=== PATIENT | female | born 1995 | race Caucasian/White ===

== ENCOUNTER 2018-04-27 14:04 | Emergency (ER) | payer SELFPAY ==
--- NOTE | 2018-04-27 14:58 | EDM.PDOC ---
ED HPI GENERAL MEDICAL PROBLEM - General Chief Complaint: Upper Extremity Injury/Pain Stated Complaint: WRIST HURT Time Seen by Provider: 04/27/18 14:12 Source of Information: Reports: Patient History Limitations: Reports: No Limitations - History of Present Illness INITIAL COMMENTS - FREE TEXT/NARRATIVE: History of present illness: []She was lifting heavy boxes last week and felt her wrist pop. She thought it would go away but in his continued. Pain is mostly on the ulnar side of her right wrist. She states she has occasionally has some numbness and tingling but has full range of motion. Review of systems: As per history of present illness and below otherwise all systems reviewed and negative. Past medical history: As per history of present illness and as reviewed below otherwise noncontributory. Surgical history: As per history of present illness and as reviewed below otherwise noncontributory. Social history: No reported history of drug or alcohol abuse. Family history: As per history of present illness and as reviewed below otherwise noncontributory. Physical exam: General: Well developed, well nourished in NAD HEENT: Atraumatic, normocephalic, pupils reactive, negative for conjunctival pallor or scleral icterus, mucous membranes moist, throat clear, neck supple, nontender, trachea midline. Lungs: Clear to auscultation, breath sounds equal bilaterally, chest nontender. Heart: S1S2, regular, negative for clicks, rubs, or JVD. Abdomen: Soft, nondistended, nontender. Negative for masses or hepatosplenomegaly. Negative for costovertebral tenderness. Pelvis: Stable nontender. Genitourinary: Deferred. Rectal: Deferred. Extremities: Atraumatic, negative for cords or calf pain. Neurovascular unremarkable. No noted swelling of the right wrist full range of motion tenderness to palpation of the left ulnar area. Neuro: Awake, alert, oriented. Cranial nerves II through XII unremarkable. Cerebellum unremarkable. Motor and sensory unremarkable throughout. Exam nonfocal. Diagnostics: []X-ray right wrist negative for fracture dislocation of fluid Therapeutics: []Cock-up splint Impression: []Right wrist pain Plan: []Ice, elevate, Motrin for pain with her splint for 1 week follow-up with PMD as needed. Definitive disposition and diagnosis as appropriate pending reevaluation and review of above. 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 - Infectious Disease History Infectious Disease History: Reports: Other (See Below) Other Infectious Disease History: wound staph infection Social & Family History - Family History Family Medical History: Noncontributory - Tobacco Use Smoking Status *Q: Former Smoker Used Tobacco, but Quit: Yes Month/Year Tobacco Last Used: 11/05/2011 - Caffeine Use Caffeine Use: Reports: None - Recreational Drug Use Recreational Drug Use: No Review of Systems - Review of Systems Review Of Systems: See Below (See history of present illness) ED EXAM, GENERAL - Physical Exam Exam: See Below (See history of present illness) Course - Vital Signs Last Recorded V/S: Last Vital Signs Temp 98.7 F 04/27/18 14:20 Pulse 96 04/27/18 14:20 Resp 16 04/27/18 14:20 BP 139/66 04/27/18 14:20 Pulse Ox 98 04/27/18 14:20 - Orders/Labs/Meds Orders: Active Orders 24 hr Category Date Time Status Wrist 2V Rt [CR] Stat Exams 04/27/18 14:24 Taken Departure - Departure Time of Disposition: 14:57 Disposition: Home, Self-Care 01 Condition: Good Clinical Impression: Right wrist sprain Qualifiers: Encounter type: initial encounter Qualified Code(s): S63.501A - Unspecified sprain of right wrist, initial encounter - Discharge Information Referrals: PCP,None [Primary Care Provider] - Additional Instructions: The following information is given to patients seen in the emergency department who are being discharged to home. This information is to outline your options for follow-up care. We provide all patients seen in our emergency department with a follow-up referral. The need for follow-up, as well as the timing and circumstances, are variable depending upon the specifics of your emergency department visit. If you don't have a primary care physician on staff, we will provide you with a referral. We always advise you to contact your personal physician following an emergency department visit to inform them of the circumstance of the visit and for follow-up with them and/or the need for any referrals to a consulting specialist. The emergency department will also refer you to a specialist when appropriate. This referral assures that you have the opportunity for follow-up care with a specialist. All of these measure are taken in an effort to provide you with optimal care, which includes your follow-up. Under all circumstances we always encourage you to contact your private physician who remains a resource for coordinating your care. When calling for follow-up care, please make the office aware that this follow-up is from your recent emergency room visit. If for any reason you are refused follow-up, please contact the [facility] Emergency Department at and asked to speak to the emergency department charge nurse. [facility] [address] [place] [id number] - My Orders Last 24 Hours: My Active Orders 04/27/18 14:24 Wrist 2V Rt [CR] Stat - Assessment/Plan Last 24 Hours: My Active Orders 04/27/18 14:24 Wrist 2V Rt [CR] Stat
--- NOTE | 2018-04-29 11:09 | CR ---
EXAM DATE: 04/27/18 PATIENT'S AGE: 23 Patient: CONTRERAS ANGULO Facility: [place], [place] Site . Site : 1995 Study: XRay Extremity Right wrist [id number]/23/2018 2:41:53 PM Ordering Physician: Gildardo Brooks Final Report: HISTORY: Pain after lifting injury 1 week ago. FINDINGS: Two views of the right wrist or provided. There are no findings for fracture, dislocation or arthritic change. Moderate negative ulnar variance is noted as a normal variation. Dictated by Christian Bray MD @ Apr 27 2018 2:47PM (Electronic Signature) Report Signed by Proxy. AUBREY
== END 2018-04-27 15:13 | disposition home or self-care (01) ==
LOC: MW.ED 14:04
DX: S63.501A Unspecified sprain of right wrist, initial encounter (principal); Z88.5 Allergy status to narcotic agent; Z88.0 Allergy status to penicillin; Z87.891 Personal history of nicotine dependence; X58.XXXA Exposure to other specified factors, initial encounter
CPT/HCPCS: 73100-26-RT; 73100-RT; 99283

== ENCOUNTER 2018-08-02 09:50 | Emergency (ER) | payer MEDICAID, OTHER ==
[2018-08-02] MEDS ORDERED: Diphtheria,Pertussis(Acell),Tetanus Vaccine 0.5 ML Syringe IM ONE (10:15)
[2018-08-02] MEDS ORDERED: Ibuprofen 800 MG Tab PO ONE (10:16)
--- NOTE | 2018-08-02 10:20 | EDM.PDOC ---
ED HPI GENERAL MEDICAL PROBLEM - General Chief Complaint: Laceration Stated Complaint: LACERATION TO HAND Time Seen by Provider: 08/02/18 10:15 Source of Information: Reports: Patient History Limitations: Reports: No Limitations - History of Present Illness INITIAL COMMENTS - FREE TEXT/NARRATIVE: HISTORY AND PHYSICAL: History of present illness: Patient is a 23-year-old female here with laceration to her right ring finger. Patient states she cut it while cutting pork chops approximately 20 minutes prior to arrival to the ED. She is uncertain of her last tetanus. She denies any distal pain, numbness, tingling, or weakness. She is otherwise in her usual state of health and has no other complaints today. Review of systems: As per history of present illness and below otherwise all systems reviewed and negative. Past medical history: As per history of present illness and as reviewed below otherwise noncontributory. Surgical history: As per history of present illness and as reviewed below otherwise noncontributory. Social history: No reported history of drug or alcohol abuse. Family history: As per history of present illness and as reviewed below otherwise noncontributory. Physical exam: General: Patient sitting comfortably in no acute distress and nontoxic appearing HEENT: Atraumatic, normocephalic, pupils reactive, negative for conjunctival pallor or scleral icterus, mucous membranes moist, throat clear, neck supple, nontender, trachea midline. No meningeal signs. Lungs: Clear to auscultation, breath sounds equal bilaterally, chest nontender. Heart: S1S2, regular, negative for clicks, rubs, or overt murmur. Skin: there is a 0.5cm tiny chunked out piece of skin with a flap over the right 4th PIP. Patient has full ROM at the PIP and DIP. CMS intact distally. Extremities: Atraumatic, negative for cords or calf pain. Neurovascular unremarkable. Neuro: Awake, alert, oriented. Cranial nerves II through XII unremarkable. Cerebellum unremarkable. Motor and sensory unremarkable throughout. Exam nonfocal. Notes: Diagnostics: None Therapeutics: Tdap Motrin Prescriptions: None Impression: Laceration Plan: 1. Keep the area clean and dry as directed 2. Follow up with primary care provider 3. Return to ED as needed as discussed Definitive disposition and diagnosis as appropriate pending reevaluation and review of above. - Related Data Allergies Allergy/AdvReac Type Severity Reaction Status Date / Time hydromorphone [From Dilaudid] Allergy Anaphylactic Verified 08/02/18 10:12 Shock Penicillins Allergy Hives Verified 04/27/18 14:19 Home Meds: Home Meds . 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 ED EXAM, SKIN/RASH Exam: See Below (see dictation) Course - Vital Signs Last Recorded V/S: Last Vital Signs Temp 36.2 C 08/02/18 10:10 Pulse 92 08/02/18 10:10 Resp 18 08/02/18 10:10 BP 131/85 08/02/18 10:10 Pulse Ox 92 L 08/02/18 10:10 - Orders/Labs/Meds Orders: Active Orders 24 hr Category Date Time Status Vaccines to be Administered [RC] PER UNIT ROUTINE Care 08/02/18 10:15 Active Meds: Medications Discontinued Medications Generic Name Dose Route Start Last Admin Trade Name Freq PRN Reason Stop Dose Admin Diphtheria/Tetanus/Acell Pertussis 0.5 ml 08/02/18 10:15 Adacel IM 08/02/18 10:16 .ONCE ONE Ibuprofen 800 mg 08/02/18 10:16 Motrin PO 08/02/18 10:17 ONETIME ONE Departure - Departure Time of Disposition: 10:32 Disposition: Home, Self-Care 01 Condition: Good Clinical Impression: Laceration - Discharge Information Referrals: PCP,None [Primary Care Provider] - Forms: ED Department Discharge Additional Instructions: The following information is given to patients seen in the emergency department who are being discharged to home. This information is to outline your options for follow-up care. We provide all patients seen in our emergency department with a follow-up referral. The need for follow-up, as well as the timing and circumstances, are variable depending upon the specifics of your emergency department visit. If you don't have a primary care physician on staff, we will provide you with a referral. We always advise you to contact your personal physician following an emergency department visit to inform them of the circumstance of the visit and for follow-up with them and/or the need for any referrals to a consulting specialist. The emergency department will also refer you to a specialist when appropriate. This referral assures that you have the opportunity for follow-up care with a specialist. All of these measure are taken in an effort to provide you with optimal care, which includes your follow-up. Under all circumstances we always encourage you to contact your private physician who remains a resource for coordinating your care. When calling for follow-up care, please make the office aware that this follow-up is from your recent emergency room visit. If for any reason you are refused follow-up, please contact the [facility] Emergency Department at and asked to speak to the emergency department charge nurse. [facility] [address] [place] [phone] 1. Keep the area clean and dry as directed 2. Follow up with primary care provider 3. Return to ED as needed as discussed - My Orders Last 24 Hours: My Active Orders 08/02/18 10:15 Vaccines to be Administered [RC] PER UNIT ROUTINE - Assessment/Plan Last 24 Hours: My Active Orders 08/02/18 10:15 Vaccines to be Administered [RC] PER UNIT ROUTINE
== END 2018-08-02 10:57 | disposition home or self-care (01) ==
LOC: MW.ED 09:50
DX: S61.214A Laceration without foreign body of right ring finger without damage to nail, initial encounter (principal); Z88.0 Allergy status to penicillin; Z88.6 Allergy status to analgesic agent; W26.8XXA Contact with other sharp object(s), not elsewhere classified, initial encounter
CPT/HCPCS: 90471; 90715; 99282; A9270